=== PATIENT | male | born 1935 | race Caucasian/White ===

== ENCOUNTER → 2016-12-09 | Outpatient (REF) | payer MEDICARE, OTHER ==
[2016-12-09 12:34] LABS: MEAN CORPUSCULAR HEMOGLOBIN 33.1 pg (27.0-33.0); MEAN CORPUSCULAR HGB CONC 34.9 g/dl (32.0-36.5); MEAN CORPUSCULAR VOLUME 94.7 fl (80.0-96.0); RED CELL DISTRIBUTION WIDTH 12.9 % (11.5-14.5); WHITE BLOOD COUNT 4.5 K/mm3 (4.0-10.0)
[2016-12-09 12:45] LABS: ALBUMIN 3.8 GM/DL (3.2-5.2); ALBUMIN/GLOBULIN RATIO 1.19 (1.00-1.93); ALKALINE PHOSPHATASE 49 U/L (45-117); ALT/SGPT 33 U/L (12-78); ANION GAP 8 MEQ/L (8-16); AST/SGOT 28 U/L (15-37); BILIRUBIN,TOTAL 0.5 MG/DL (0.2-1.0); BLOOD UREA NITROGEN 12 MG/DL (7-18); CALCIUM LEVEL 8.9 MG/DL (8.8-10.2); CARBON DIOXIDE LEVEL 30 MEQ/L (21-32); CHLORIDE LEVEL 104 MEQ/L (98-107); CHOLESTEROL LEVEL 150 MG/DL (<200); CREATININE FOR GFR 0.94 MG/DL (0.70-1.30); GLOMERULAR FILTRATION RATE > 60.0 (>42); GLUCOSE, FASTING 105 MG/DL (83-110); POTASSIUM SERUM 3.8 MEQ/L (3.5-5.1); SODIUM LEVEL 142 MEQ/L (136-145); TRIGLYCERIDES LEVEL 181 MG/DL (<150)
== END ==
LOC: M LABDRAWC 11:56
PROVIDERS: ATTEND Physician Assistant
DX: I25.10 Atherosclerotic heart disease of native coronary artery without angina pectoris (principal); E78.00 Pure hypercholesterolemia, unspecified; I10 Essential (primary) hypertension

== ENCOUNTER → 2017-01-31 | Outpatient (CLI) | payer MEDICARE, OTHER ==
--- NOTE | 2017-01-31 11:00 | REP ---
PA and lateral chest: Comparison is 02/07/2016. There is no pneumothorax, hemothorax or pulmonary contusion. No rib fractures are identified on these PA and lateral views, however, the patient reportedly had two left rib fractures on a rib series performed at an outside institution approximately 3 weeks ago. There is no pleural thickening. Cardiac size is normal. The janis, mediastinum, and bony thorax are unremarkable . Impression: Essentially negative PA and lateral chest. No change from the comparison study. 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 Signed by El Tran MD 01/31/2017 10:51 A
== END ==
LOC: M CLY 10:14
PROVIDERS: ATTEND Family Medicine
DX: S22.42XA Multiple fractures of ribs, left side, initial encounter for closed fracture (principal); X58.XXXA Exposure to other specified factors, initial encounter; Y93.9 Activity, unspecified; Y92.9 Unspecified place or not applicable; Y99.8 Other external cause status

== ENCOUNTER → 2017-03-25 | Outpatient (CLI) | payer MEDICARE, OTHER ==
--- NOTE | 2017-03-25 17:06 | REP ---
RIGHT SHOULDER, ONE VIEW: HISTORY: Pain. There is no acute fracture or dislocation. There is narrowing of the joint spaces. Osteophytes are present on the lateral and inferior acromion. IMPRESSION: Degenerative change as described above.
== END ==
LOC: M CLY 15:14
PROVIDERS: ATTEND Family Medicine
DX: M19.011 Primary osteoarthritis, right shoulder (principal)
CPT/HCPCS: 73020; G0463

== ENCOUNTER → 2017-04-17 | Outpatient (CLI) | payer MEDICARE, OTHER ==
--- NOTE | 2017-04-17 11:13 | REP ---
CERVICAL SPINE SERIES: Seven views. HISTORY: Neck pain. FINDINGS: Lateral views done in flexion, extension and neutral position show preserved vertebral body heights and normal alignment. No subluxation or instability is seen. There is diffuse degenerative disc disease at each level. Disc space narrowing and spurring most pronounced at the C4-5 and C6-7. Prevertebral soft tissues are not widened. Open-mouth odontoid view is unremarkable. AP view shows heavy vascular calcification along the carotid bifurcations bilaterally. There is mild facet hypertrophy. Bilateral oblique radiographs demonstrate intact neural foramina bilaterally at each cervical level and normally aligned facets. IMPRESSION: Diffuse degenerative spondylosis and degenerative disc disease. No subluxation or instability. No significant bony neural foraminal narrowing seen.
== END ==
LOC: M CLY 10:13
PROVIDERS: ATTEND Family Medicine
DX: M47.812 Spondylosis without myelopathy or radiculopathy, cervical region (principal); M50.30 Other cervical disc degeneration, unspecified cervical region
CPT/HCPCS: 72052; G0463

== ENCOUNTER → 2017-04-29 | Outpatient (REF) | payer MEDICARE, OTHER ==
[2017-04-29 13:01] LABS: ALBUMIN 3.9 GM/DL (3.2-5.2); ALBUMIN/GLOBULIN RATIO 1.15 (1.00-1.93); ALKALINE PHOSPHATASE 61 U/L (45-117); ALT/SGPT 36 U/L (12-78); ANION GAP 8 MEQ/L (8-16); AST/SGOT 23 U/L (15-37); BILIRUBIN,TOTAL 0.4 MG/DL (0.2-1.0); BLOOD UREA NITROGEN 15 MG/DL (7-18); CARBON DIOXIDE LEVEL 30 MEQ/L (21-32); CHLORIDE LEVEL 104 MEQ/L (98-107); CHOLESTEROL LEVEL 158 MG/DL (<200); CREATININE FOR GFR 0.89 MG/DL (0.70-1.30); GLOMERULAR FILTRATION RATE > 60.0 (>35); GLUCOSE, FASTING 100 MG/DL (83-110); SODIUM LEVEL 142 MEQ/L (136-145); TOTAL PROTEIN 7.3 GM/DL (6.4-8.2); TRIGLYCERIDES LEVEL 184 MG/DL (<150)
== END ==
LOC: M LAB REF 08:27
PROVIDERS: ATTEND Physician Assistant
DX: I25.10 Atherosclerotic heart disease of native coronary artery without angina pectoris (principal); I10 Essential (primary) hypertension; E78.00 Pure hypercholesterolemia, unspecified

== ENCOUNTER → 2017-05-17 | Outpatient (CLI) | payer MEDICARE, OTHER ==
--- NOTE | 2017-05-17 19:00 | REP ---
Right shoulder MRI: The studies performed with T1, T2 and gradient echo data sets in sagittal, axial and coronal projections. Comparison is the plain film study dated 03/25/2017. There is marrow edema at the acromioclavicular joint and the distal clavicle and proximal acromion, possibly bone contusions. No fracture is identified. There is a small volume of fluid in the subacromial bursa compatible with bursitis. There is a full-thickness tear of the distal supraspinatus tendon with the distal tendon retracted approximately 18 mm. The supraspinatus tendon is irregular and contains multiple intermediate and T2 signal foci and is diffusely thinned. These findings are compatible with advanced tendinosis. There is cephalic migration of the humeral head and the glenoid. There is mild tendinosis of the infraspinatus tendon. This teres minor tendon is unremarkable. There is tendinosis of the subscapularis tendon. I suspect there is a full-thickness tear of the subscapularis tendon near the musculotendinous junction with 2 mm of retraction. There is also advanced tendinosis throughout the subscapularis tendon. There are small subcortical degenerative cysts in the humeral head. No labral tears identified, however, MRI arthrogram would be more sensitive. 5. Do not identify the biceps long head tendon within the bicipital groove. I suspect it is toward and retracted to the inferior margin of the bicipital groove. Impression: Severe tendinosis and thinning of the supraspinatus and subscapularis tendons. Full-thickness tear of the distal supraspinatus tendon with 18 mm of retraction. Full-thickness tear of the subscapularis tendon with 2 mm of retraction. Mild tendinosis of the infraspinatus tendon. Cephalic migration of the humeral head in the glenoid. I suspect the biceps long head tendon is torn and retracted to the inferior margin of the bicipital groove. Bone contusions in the distal clavicle and proximal acromion. Degenerative cysts in the humeral head. Mild glenohumeral osteoarthritis. Signed by El Tran MD 05/17/2017 06:52 P
== END ==
LOC: M RAD 10:05
PROVIDERS: ATTEND Family Medicine
DX: M25.511 Pain in right shoulder (principal)

== ENCOUNTER → 2017-12-08 | Outpatient (REF) | payer MEDICARE, OTHER ==
[2017-12-08 16:38] LABS: TOTAL 25(OH) VITAMIN D 47.4 NG/ML (30.0-100.0)
[2017-12-08 16:39] LABS: ANION GAP 8 MEQ/L (8-16); BLOOD UREA NITROGEN 19 MG/DL (7-18); CALCIUM LEVEL 9.1 MG/DL (8.8-10.2); CARBON DIOXIDE LEVEL 28 MEQ/L (21-32); CHLORIDE LEVEL 103 MEQ/L (98-107); CREATININE FOR GFR 0.98 MG/DL (0.70-1.30); GLOMERULAR FILTRATION RATE > 60.0 (>35); GLUCOSE, FASTING 94 MG/DL (70-100); MAGNESIUM LEVEL 2.5 MG/DL (1.8-2.4); POTASSIUM SERUM 4.4 MEQ/L (3.5-5.1); SODIUM LEVEL 139 MEQ/L (136-145)
== END ==
LOC: M SFHCCLAY 10:03
DX: R25.2 Cramp and spasm (principal); I10 Essential (primary) hypertension; Z79.82 Long term (current) use of aspirin; Z79.899 Other long term (current) drug therapy
CPT/HCPCS: 83735

== ENCOUNTER 2018-01-19 08:10 | Day surgery (SDC) | payer MEDICARE, OTHER ==
[2018-01-19] MEDS: NS 1,000 ML IV (08:30)
[2018-01-19] MEDS ORDERED: PROPOFOL 200 MG/20 ML VIAL As Ordered (10:12)
[2018-01-19] MEDS ORDERED: LIDOCAINE 2% INJ 100 MG/5 ML SDV (FOR ANES.) As Ordered (10:12)
== END 2018-01-19 10:40 | disposition home or self-care (01) ==
LOC: M OPP 08:10
DX: Z12.11 Encounter for screening for malignant neoplasm of colon (principal); Z86.010 Personal history of colon polyps; D12.6 Benign neoplasm of colon, unspecified; D17.5 Benign lipomatous neoplasm of intra-abdominal organs; K63.89 Other specified diseases of intestine; K64.0 First degree hemorrhoids; K57.30 Diverticulosis of large intestine without perforation or abscess without bleeding; R12 Heartburn; K22.8 Other specified diseases of esophagus; K44.9 Diaphragmatic hernia without obstruction or gangrene; I10 Essential (primary) hypertension; E78.5 Hyperlipidemia, unspecified; K21.9 Gastro-esophageal reflux disease without esophagitis; M19.90 Unspecified osteoarthritis, unspecified site; H25.9 Unspecified age-related cataract; Z88.1 Allergy status to other antibiotic agents; Z79.82 Long term (current) use of aspirin; Z79.899 Other long term (current) drug therapy; Z80.0 Family history of malignant neoplasm of digestive organs; Z87.891 Personal history of nicotine dependence
CPT/HCPCS: 45385

== ENCOUNTER → 2018-03-23 | Outpatient (CLI) | payer MEDICARE, OTHER | LOC: M RAD 09:48 | DX: I65.23 Occlusion and stenosis of bilateral carotid arteries (principal) | CPT/HCPCS: 93880 ==

== ENCOUNTER → 2018-04-07 | Outpatient (CLI) | payer MEDICARE, OTHER | LOC: M RAD 08:10 | DX: K76.0 Fatty (change of) liver, not elsewhere classified (principal); N28.1 Cyst of kidney, acquired | CPT/HCPCS: 76705 ==

== ENCOUNTER → 2018-05-19 | Outpatient (REF) | payer MEDICARE, OTHER ==
[2018-05-19 18:16] LABS: ALBUMIN/GLOBULIN RATIO 1.18 (1.00-1.93); ALKALINE PHOSPHATASE 57 U/L (45-117); ALT/SGPT 38 U/L (12-78); ANION GAP 7 MEQ/L (8-16); AST/SGOT 32 U/L (7-37); BILIRUBIN,TOTAL 0.3 MG/DL (0.2-1.0); BLOOD UREA NITROGEN 14 MG/DL (7-18); CALCIUM LEVEL 9.4 MG/DL (8.8-10.2); CARBON DIOXIDE LEVEL 32 MEQ/L (21-32); CHLORIDE LEVEL 103 MEQ/L (98-107); CHOLESTEROL LEVEL 164 MG/DL (<200); GLOMERULAR FILTRATION RATE > 60.0 (>35); GLUCOSE, FASTING 77 MG/DL (70-100); HDL CHOLESTEROL 41 MG/DL (>40); LDL CHOLESTEROL 87 MG/DL (<100); NON-HDL-C 123 MG/DL; POTASSIUM SERUM 4.1 MEQ/L (3.5-5.1); SODIUM LEVEL 142 MEQ/L (136-145); TOTAL PROTEIN 7.4 GM/DL (6.4-8.2); TRIGLYCERIDES LEVEL 182 MG/DL (<150)
[2018-05-19 18:40] LABS: HEMATOCRIT 42.1 % (42.0-52.0); HEMOGLOBIN 13.8 g/dl (13.5-17.5); MEAN CORPUSCULAR HEMOGLOBIN 30.5 pg (27.0-33.0); MEAN CORPUSCULAR HGB CONC 32.8 g/dl (32.0-36.5); MEAN CORPUSCULAR VOLUME 92.9 fl (80.0-96.0); PLATELET COUNT, AUTOMATED 310 10^3/uL (150-450); RED BLOOD COUNT 4.53 10^6/uL (4.30-6.10); RED CELL DISTRIBUTION WIDTH 12.2 % (11.5-14.5); WHITE BLOOD COUNT 5.5 10^3/uL (4.0-10.0)
== END ==
LOC: M LABDRAWC 16:16
DX: Z01.810 Encounter for preprocedural cardiovascular examination (principal); I25.10 Atherosclerotic heart disease of native coronary artery without angina pectoris; I10 Essential (primary) hypertension; E78.00 Pure hypercholesterolemia, unspecified
CPT/HCPCS: 80053

== ENCOUNTER → 2019-05-17 | Outpatient (CLI) | payer MEDICARE, OTHER ==
[~2019-05-17] MED LIST: AMLO10TA5 PO; ASPI1CHW2 PO; ATOR1TAB21 PO; ESCI20TA PO; HYDR12CA PO; PANT40TA3 PO; RAMI1CAP26 PO
--- NOTE | 2019-05-17 19:22 | REP ---
CHEST, TWO VIEWS: Two views of the chest are performed and compared to prior study of 01/31/2017. There is very mild fibro atelectatic change in each lung base. No acute infiltrate is seen. The heart is normal in size. There is mild calcification of the thoracic aorta. Mediastinal silhouette is unchanged. There are degenerative changes of the spine. IMPRESSION: Stable chronic findings. No acute infiltrate. Electronically Signed by El Ba MD 05/18/2019 04:47 P
== END ==
LOC: M CLY 15:06
PROVIDERS: ATTEND Nurse Practitioner Family
DX: R91.8 Other nonspecific abnormal finding of lung field (principal); R79.81 Abnormal blood-gas level
CPT/HCPCS: 71046; 87880; G0463

== ENCOUNTER → 2019-05-26 | Outpatient (REF) | payer MEDICARE, OTHER ==
[2019-05-26 11:44] LABS: HEMATOCRIT 43.4 % (42.0-52.0); HEMOGLOBIN 14.2 g/dl (13.5-17.5); MEAN CORPUSCULAR HEMOGLOBIN 30.9 pg (27.0-33.0); MEAN CORPUSCULAR HGB CONC 32.7 g/dl (32.0-36.5); MEAN CORPUSCULAR VOLUME 94.6 fl (80.0-96.0); PLATELET COUNT, AUTOMATED 299 10^3/uL (150-450); RED BLOOD COUNT 4.59 10^6/uL (4.30-6.10); WHITE BLOOD COUNT 5.9 10^3/uL (4.0-10.0)
[2019-05-26 12:06] LABS: ALBUMIN 3.7 GM/DL (3.2-5.2); ALT/SGPT 24 U/L (12-78); BILIRUBIN,TOTAL 0.3 MG/DL (0.2-1.0); BLOOD UREA NITROGEN 21 MG/DL (7-18); CALCIUM LEVEL 8.8 MG/DL (8.8-10.2); CARBON DIOXIDE LEVEL 30 MEQ/L (21-32); CHLORIDE LEVEL 105 MEQ/L (98-107); CHOLESTEROL LEVEL 148 MG/DL (<200); CHOLESTEROL RISK RATIO 2.901 (<5); CREATININE FOR GFR 1.11 MG/DL (0.70-1.30); GLOMERULAR FILTRATION RATE > 60.0 (>35); GLUCOSE, FASTING 87 MG/DL (70-100); HDL CHOLESTEROL 51 MG/DL (>40); LDL CHOLESTEROL 74 MG/DL (<100); NON-HDL-C 97 MG/DL; POTASSIUM SERUM 4.1 MEQ/L (3.5-5.1); SODIUM LEVEL 141 MEQ/L (136-145); TOTAL PROTEIN 7.1 GM/DL (6.4-8.2); TRIGLYCERIDES LEVEL 116 MG/DL (<150)
== END ==
LOC: M LABDRAWC 11:19
PROVIDERS: ATTEND Physician Assistant
DX: Z01.810 Encounter for preprocedural cardiovascular examination (principal); I25.10 Atherosclerotic heart disease of native coronary artery without angina pectoris; E78.00 Pure hypercholesterolemia, unspecified; I10 Essential (primary) hypertension

== ENCOUNTER → 2019-12-13 | Outpatient (REF) | payer MEDICARE, OTHER ==
[2019-12-13 16:42] LABS: BLOOD UREA NITROGEN 13 MG/DL (7-18); CALCIUM LEVEL 8.9 MG/DL (8.8-10.2); CARBON DIOXIDE LEVEL 30 MEQ/L (21-32); CHLORIDE LEVEL 105 MEQ/L (98-107); CREATININE FOR GFR 0.95 MG/DL (0.70-1.30); GLOMERULAR FILTRATION RATE > 60.0 (>35); GLUCOSE, FASTING 110 MG/DL (70-100); POTASSIUM SERUM 4.3 MEQ/L (3.5-5.1); SODIUM LEVEL 141 MEQ/L (136-145)
== END ==
LOC: M LABDRAWC 15:47
PROVIDERS: ATTEND Physician Assistant
DX: I25.10 Atherosclerotic heart disease of native coronary artery without angina pectoris (principal); I10 Essential (primary) hypertension

== ENCOUNTER → 2020-01-07 | Outpatient (REF) | payer MEDICARE, OTHER ==
[2020-01-07 12:20] LABS: HEMATOCRIT 41.5 % (42.0-52.0); HEMOGLOBIN 13.4 g/dl (13.5-17.5); MEAN CORPUSCULAR HEMOGLOBIN 30.5 pg (27.0-33.0); MEAN CORPUSCULAR HGB CONC 32.3 g/dl (32.0-36.5); MEAN CORPUSCULAR VOLUME 94.3 fl (80.0-96.0); PLATELET COUNT, AUTOMATED 291 10^3/uL (150-450); WHITE BLOOD COUNT 5.3 10^3/uL (4.0-10.0)
[2020-01-07 12:22] LABS: APPEARANCE, URINE CLEAR (CLEAR); BACTERIA, URINE AUTO NEGATIVE (NEGATIVE); BILIRUBIN, URINE AUTO NEGATIVE (NEGATIVE); BLOOD, URINE BLOOD NEGATIVE (NEGATIVE); COLOR, URINE YELLOW (YELLOW); GLUCOSE, URINE (UA) AUTO NEGATIVE (NEGATIVE); KETONE, URINE AUTO NEGATIVE (NEGATIVE); LEUKOCYTE ESTERASE, URINE AUTO NEGATIVE (NEGATIVE); MUCUS, URINE SMALL (NEGATIVE); NITRITE, URINE AUTO NEGATIVE (NEGATIVE); PROTEIN, URINE AUTO NEGATIVE (NEGATIVE); RBC, URINE AUTO 0 /HPF (0-3); SPECIFIC GRAVITY URINE AUTO 1.015 (1.002-1.035); SQUAMOUS EPITHELIAL CELL UR AU 0 /HPF (0-6); UROBILINOGEN, URINE AUTO 0.2 mg/dL (0.0-2.0); WBC, URINE AUTO 0 /HPF (0-3)
[2020-01-07 12:28] LABS: INR 0.96; PROTHROMBIN TIME 12.5 SECONDS (11.8-14.0)
[2020-01-07 12:43] LABS: BLOOD UREA NITROGEN 13 MG/DL (7-18); CALCIUM LEVEL 9.4 MG/DL (8.8-10.2); CARBON DIOXIDE LEVEL 28 MEQ/L (21-32); CHLORIDE LEVEL 105 MEQ/L (98-107); CREATININE FOR GFR 0.84 MG/DL (0.70-1.30); GLOMERULAR FILTRATION RATE > 60.0 (>35); GLUCOSE, FASTING 89 MG/DL (70-100); SODIUM LEVEL 140 MEQ/L (136-145)
== END ==
LOC: M LABDRAWC 11:44
PROVIDERS: ATTEND Orthopaedic Surgery
DX: Z01.818 Encounter for other preprocedural examination (principal); M48.00 Spinal stenosis, site unspecified

== ENCOUNTER → 2020-01-07 | Outpatient (CLI) | payer MEDICARE, OTHER ==
--- NOTE | 2020-01-07 10:24 | REP ---
CHEST, TWO VIEWS: COMPARISON: 05/17/2019 There is no evidence of acute infiltrate. No pleural effusion is seen. The heart is normal in size. The mediastinal silhouette is unremarkable. The visualized osseous structures are intact. There is mild calcification of the thoracic aorta. There are mild degenerative changes of the spine. IMPRESSION: No acute pulmonary disease. Electronically Signed by El Ba MD 01/07/2020 11:08 A
== END ==
LOC: M CLY 08:37
PROVIDERS: ATTEND Orthopaedic Surgery
DX: Z01.818 Encounter for other preprocedural examination (principal); M48.00 Spinal stenosis, site unspecified; Z79.899 Other long term (current) drug therapy

== ENCOUNTER 2020-02-18 19:15 | Inpatient (IN) | payer MEDICARE, OTHER ==
[~2020-02-18] VITALS: Ht 167.6 cm; Wt 94.5 kg
[~2020-02-18 19:15] MED LIST changes: -AMLO10TA5 PO; +AMLO1TAB25 PO; +PANT40TA29 PO; -PANT40TA3 PO
[2020-02-18] MEDS ORDERED: ACETAMINOPHEN 500 MG TAB PO ONE (19:45)
[2020-02-18] MEDS ORDERED: BACT400T PO (20:00)
[2020-02-18] MEDS ORDERED: SERT50TA29 PO (20:00)
[2020-02-18] MEDS ORDERED: FLOM0.4C39 PO (20:00)
[2020-02-18 20:11] LABS: BASO % 0.2 % (0.0-1.0); EOS % 0.4 % (0.0-3.0); HEMATOCRIT 31.5 % (42.0-52.0); HEMOGLOBIN 10.3 g/dl (13.5-17.5); LYMPH # 0.2 10^3/uL (1.5-5.0); LYMPH % 2.6 % (24.0-44.0); MEAN CORPUSCULAR HEMOGLOBIN 30.2 pg (27.0-33.0); MEAN CORPUSCULAR HGB CONC 32.7 g/dl (32.0-36.5); MEAN CORPUSCULAR VOLUME 92.4 fl (80.0-96.0); MONO # 0.2 10^3/uL (0.0-0.8); MONO % 1.8 % (0.0-5.0); NEUTROPHILS # 8.6 10^3/uL (1.5-8.5); NEUTROPHILS % 94.6 % (36.0-66.0); PLATELET COUNT, AUTOMATED 369 10^3/uL (150-450); RED BLOOD COUNT 3.41 10^6/uL (4.30-6.10); WHITE BLOOD COUNT 9.1 10^3/uL (4.0-10.0)
[2020-02-18 20:32] LABS: BLOOD UREA NITROGEN 11 MG/DL (7-18); CALCIUM LEVEL 8.2 MG/DL (8.8-10.2); CARBON DIOXIDE LEVEL 23 MEQ/L (21-32); CHLORIDE LEVEL 101 MEQ/L (98-107); CREATININE FOR GFR 0.78 MG/DL (0.70-1.30); GLOMERULAR FILTRATION RATE > 60.0 (>35); GLUCOSE, FASTING 111 MG/DL (70-100); POTASSIUM SERUM 3.6 MEQ/L (3.5-5.1); SODIUM LEVEL 132 MEQ/L (136-145)
[2020-02-18 20:48] LABS: BILIRUBIN,DIRECT 0.2 MG/DL (0.0-0.2); BILIRUBIN,TOTAL 0.8 MG/DL (0.2-1.0); C REACTIVE PROTEIN QUANTITATIV 4.8 MG/DL (0.00-0.30); TOTAL PROTEIN 6.3 GM/DL (6.4-8.2)
[2020-02-18 20:50] LABS: CK-MB VALUE MASS < 1.0 NG/ML (<3.6); CPK CREATINE PHOSPHOKINASE 84 U/L (39-308); MB/CK RELATIVE INDEX 1.19 (< OR =4); TROPONIN I < 0.02 NG/ML (< 0.10)
[2020-02-18] MEDS ORDERED: ATORVASTATIN 10 MG TAB PO SCH (21:00)
[2020-02-18] MEDS ORDERED: ASPIRIN 81 MG ENTERIC TAB PO SCH (21:00)
[2020-02-18] MEDS ORDERED: NS 1,000 ML IV ONE (21:45)
--- NOTE | 2020-02-18 22:07 | REPVR ---
PROCEDURE INFORMATION: Exam: CT Lumbar Spine Without Contrast Exam date and time: 02/18/2020 9:46 PM Age: 84 years old Clinical indication: Low back pain; Prior surgery; Additional info: Eval post pain/abscess TECHNIQUE: Imaging protocol: Computed tomography images of the lumbar spine without contrast. Radiation optimization: All CT scans at this facility use at least one of these dose optimization techniques: automated exposure control; mA and/or kV adjustment per patient size (includes targeted exams where dose is matched to clinical indication); or iterative reconstruction. COMPARISON: No relevant prior studies available. FINDINGS: Vertebrae: Status post posterior interbody fusion of L1-S1 using transpedicular screws metallic side plates. Status post bilateral laminectomies at L1 through L5. Levoscoliosis. Discs/Spinal canal/Neural foramina: No significant disc protrusion. No severe spinal canal stenosis. No significant neural foraminal narrowing. Epidural space: Extensive postoperative soft tissue inflammatory changes demonstrated in the posterior paraspinal soft tissues from L1-S1 extending anteriorly into the posterior epidural space. Finding consistent with postoperative changes including fibrosis and or inflammatory changes depending on procedure date, although infection not excluded. Other bones/joints: Osteoporosis. Reproductive: Moderate prostatomegaly. Contracted urinary bladder demonstrates the presence of a Bob catheter and intraluminal air likely postprocedural. Mild diverticular disease in the sigmoid colon. Right renal cyst measures 2.8 cm without complex features. Soft tissue mass in the anterior aspect of the left kidney measures 5.8 cm not definitely cystic. Further evaluation suggested. Soft tissues: Large fluid collection demonstrated in the posterior paraspinal soft tissues extending from T12-S1 measuring 18.7 cm craniocaudad by 3.7 x 10.4 cm in transverse dimension. Finding may represent postoperative seroma/hematoma although infection is not excluded. IMPRESSION: 1. Status post posterior interbody fusion of L1-S1 using transpedicular screws metallic side plates. Status post bilateral laminectomies at L1 through L5. 2. Large fluid collection demonstrated in the posterior paraspinal soft tissues extending from T12-S1 measuring 18.7 cm craniocaudad by 3.7 x 10.4 cm in transverse dimension. Finding may represent postoperative seroma/hematoma although infection is not excluded. 3. Extensive postoperative soft tissue inflammatory changes demonstrated in the posterior paraspinal soft tissues from L1-S1 extending anteriorly into the posterior epidural space. Finding consistent with postoperative changes including fibrosis and or inflammatory changes depending on procedure date, although infection not excluded. 4. Left renal cyst and possible left renal mass as described above. Further evaluation with ultrasound suggested. Electronically signed by: Enzo Lozoya On 02/18/2020 22:07:21 PM
[2020-02-18] MEDS ORDERED: ATOR1TAB19 PO (22:24)
[2020-02-18] MEDS ORDERED: ECOT81TA5 PO (22:24)
[2020-02-18] MEDS ORDERED: QC F0.52 PO (22:24)
--- NOTE | 2020-02-18 22:58 | HPEPDOC ---
[facility] Medical History & Physical Date of Admission Feb 19, 2020 Date of Service: Feb 19, 2020 Primary Care Physician: Zay Correia MD Attending Physician: BRYAN DAVE MD History and Physical TIME OF SERVICE: 11:35 PM CHIEF COMPLAINT: Fever HISTORY OF PRESENT ILLNESS: The majority of the history was obtained from the ER staff and ER notes, the patient reports that he doesn't know why he came to the hospital and doesn't remember how he got here. This 84-year-old gentleman called EMS because he was having a fever associated with nausea and vomiting. Apparently he presented to [facility] several times over the last 3 days and was prescribed antibiotics for UTI. When EMS checked his vitals. His fever was as high as 102.8. The patient denied taking any medications for the fever. On my assessment, the patient reported feeling fine, denied having any acute complaints or pain, and reported being unaware of the reason why he came to the hospital. According to Dr. Boykin the patient complained of back pain, therefore, he ordered a CT of the lumbar spine. REVIEW OF SYSTEMS: 12 point review of systems negative except as listed in HPI PAST MEDICAL/ SURGICAL HISTORY: Hypertension Dyslipidemia Chronic lower back pain status post Bilateral laminectomies at L1 through L5 BPH Chronic indwelling urinary catheter OA Anxiety Bilateral knee surgery SOCIAL HISTORY: Former smoker He doesn't drink alcohol He lives with his FAMILY HISTORY: Lung cancer Prostate cancer ALLERGIES: Please see below. HOME MEDICATIONS: Please see below. PHYSICAL EXAMINATION: Vital Signs Date Time Temp Pulse Resp B/P (MAP) Pulse Ox O2 Delivery O2 Flow Rate FiO2 02/18/20 19:21 20 117/58 (77) Room Air 02/18/20 19:22 101.7 93 90 GEN: well-nourished / well developed/ NAD INTEGUMENT: not flushed/ not jaundice HEENT: NCAT CVS: RRR/NMRG/ radial pulses intact LUNGS: able to speak full sentences without stopping to take a breath / lungs are clear to auscultation bilaterally on room air ABDOMEN: Contour (obese) MSK/EXTREMITIES: range of motion intact in all 4 extremities / the skin surrounding the incision site at the back is well healed, there is no discharge, but there is 7 inch long 1 inch wide bludging area parallel to the spine NEURO: CN 2-12 are grossly intact / speech is not dysarthric / strength is 5/5 except at right lower extremity 4/PSYCH: alert and oriented to person place and time/ able to understand and follow all commands LABORATORY DATA: 02/18/20 19:32 Immature Granulocyte % (Auto) 0.4, Neutrophils (%) (Auto) 94.6H, Lymphocytes (%) (Auto) 2.6L, Monocytes (%) (Auto) 1.8, Eosinophils (%) (Auto) 0.4, Basophils (%) (Auto) 0.2, Neutrophils # (Auto) 8.6H, Lymphocytes # (Auto) 0.2L, Monocytes # (Auto) 0.2, Eosinophils # (Auto) 0.0, Basophils # (Auto) 0.0, Nucleated Red Blood Cells % (auto) 0.0, D-Dimer, Quantitative > 4000H, Anion Gap 8, Glomerular Filtration Rate > 60.0, Lactic Acid Level 2.5*H, Calcium Level 8.2L, Total Bilirubin 0.8, Direct Bilirubin 0.2, Aspartate Amino Transf (AST/SGOT) 17, Alanine Aminotransferase (ALT/SGPT) 16, Alkaline Phosphatase 110, Lactate Dehydrogenase 183, Total Creatine Kinase 84, Creatine Kinase MB < 1.0, Creatine Kinase MB Relative Index 1.19, Troponin I < 0.02, C-Reactive Protein, Quantitative 4.80H, Total Protein 6.3L, Albumin 3.0L, Albumin/Globulin Ratio 0.9 02/18/20 19:57: 02/18/20 20:05: POC pH (Misc Panel) 7.407, POC Base Excess (Misc Panel) -2.0, POC Saturated Percent O2 (Misc) 94L, POC pO2 (Misc Panel) 69.0L, POC pCO2 (Misc Panel) 36.8, POC HCO3 (Misc Panel) 23.2, POC Total CO2 (Misc Panel) 24.0 IMAGING: CT of the lumbar spine "IMPRESSION: 1. Status post posterior interbody fusion of L1-S1 using transpedicular screws metallic side plates. Status post bilateral laminectomies at L1 through L5. 2. Large fluid collection demonstrated in the posterior paraspinal soft tissues extending from T12-S1 measuring 18.7 cm raniocaudad by 3.7 x 10.4 cm in transverse dimension. Finding may represent postoperative seroma/hematoma although infection is not excluded. 3. Extensive postoperative soft tissue inflammatory changes demonstrated in the posterior paraspinal soft tissues from L1-S1 extending anteriorly into the posterior epidural space. Finding consistent with postoperative changes including fibrosis and or inflammatory changes depending on procedure date, although infection not excluded. 4. Left renal cyst and possible left renal mass as described above. Further evaluation with ultrasound suggested. " CTA chest "IMPRESSION: 1. No pulmonary artery emboli. 2. No acute findings. " The chest x-ray shows cardiomegaly and prominent pulmonary vasculature, but the final read is pending MICROBIOLOGY: 02/18/20 Respiratory Virus Panel (PCR) (RUBIA) - Final, Complete 02/18/20 Blood Culture, Received Pending ASSESSMENT: Mr. Yo is an 84-year-old with a history of chronic back pain and recent bilateral L1-L5 laminectomies, chronic hypertension, dyslipidemia, BPH, OA, and anxiety who presented for evaluation of fever, possibly due to UTI and or ramu marizol soft tissue fluid collection. PLAN: 1. Fever He doesn't have other SIRS criteria but has lactic acidosis Plan: Admit to medical floor / telemetry / Zosyn / f/u Ucx and blood Cx / trend lactic acid / acetaminophen PRN for fever 2. Posterior paraspinal soft tissue fluid collection Possibly due to seroma vs hematoma vs infection The patient can't remember when his surgery was done. Plan: per d/w will contact transfer center at [facility] to see if he can be transferred there to be evaluated by his Primary Back surgeon / c/w Roger 3. Possible UTI The patient has a rodriguez, but didn't c/o of abdominal pain at the time of my exam UA + for leukocyte esterase and WBCs Plan: Zosyn pending final Ucx results 4. Left 5.8 cm renal mass Plan: can f/u w PCP to complete work up for renal cancer on an out pt basis 5. NN Anemia Suspect this may be related to renal cancer ??? Hg dropped from 13.4 down to 10.3 Plan: trend Hg/ f/u iron panel 6. Mild Hyponatremia Plan: f/u Uosmol, serum osmol and Ayala to determine subtype 7. Elevated D-dimer CTA chest negative Plan: no additional intervention 8. Chronic Hypertension Plan: amlodipine, HTCZ, ramipril 9. Dyslipidemia Plan: atorvastatin 10. BPH / Chronic indwelling urinary catheter Plan: rodriguez care, tamsulosin 11. Obesity BMI of 33.6 complicates care DVT PROPHYLAXIS: Lovenox DISPOSITION: possible transfer to [facility] LATE ENTRY Per d/w [facility] procedure was done on January 27 Home Medications Scheduled Amlodipine Besylate (Amlodipine Besylate) 10 Mg Tab, 10 MG PO DAILY Aspirin (Ecotrin) 81 Mg Tablet.dr, 81 MG PO QHS Atorvastatin Calcium (Atorvastatin Calcium) 10 Mg Tablet, 10 MG PO DAILY Hydrochlorothiazide (Hydrochlorothiazide) 12.5 Mg Cap, 12.5 MG PO DAILY Pantoprazole Sodium (Pantoprazole Sodium) 40 Mg Tab, 40 MG PO DAILY Psyllium Husk (Fiber) 0.52 Gm Capsule, 0.52 GM PO DAILY Ramipril (Ramipril) 10 Mg Cap, 10 MG PO DAILY Sertraline HCl (Sertraline HCl) 50 Mg Tablet, 50 MG PO DAILY Tamsulosin HCl (Flomax) 0.4 Mg Capsule, 0.8 MG PO DAILY Allergies Coded Allergies: Lobster (Verified Allergy, Unknown, 02/18/20) Shrimp (Verified Allergy, Unknown, 02/18/20) erythromycin base (Verified Allergy, Unknown, 02/18/20) A-FIB/CHADSVASC A-FIB History Current/History of A-Fib/PAF?: No Current PO Anticoag Therapy: No BRYAN DAVE MD Feb 18, 2020 22:58
[2020-02-18 22:59] LABS: APPEARANCE, URINE CLOUDY (CLEAR); BACTERIA, URINE AUTO 1+ (NEGATIVE); BILIRUBIN, URINE AUTO NEGATIVE (NEGATIVE); BLOOD, URINE BLOOD 3+ (NEGATIVE); COLOR, URINE AMBER (YELLOW); GLUCOSE, URINE (UA) AUTO NEGATIVE (NEGATIVE); KETONE, URINE AUTO TRACE mg/dL (NEGATIVE); LEUKOCYTE ESTERASE, URINE AUTO 3+ (NEGATIVE); MUCUS, URINE SMALL (NEGATIVE); NITRITE, URINE AUTO POSITIVE (NEGATIVE); PROTEIN, URINE AUTO 2+ mg/dL (NEGATIVE); RBC, URINE AUTO 111 /HPF (0-3); SPECIFIC GRAVITY URINE AUTO 1.023 (1.002-1.035); SQUAMOUS EPITHELIAL CELL UR AU 0 /HPF (0-6); TRANSITIONAL EPITHELIAL AUTO 2 /HPF; UROBILINOGEN, URINE AUTO 0.2 mg/dL (0.0-2.0); WBC, URINE AUTO TNTC /HPF (0-3)
[2020-02-18] MEDS ORDERED: MOM 30ML SUSPENSION UDC PO PRN (23:00)
[2020-02-18] MEDS ORDERED: ACETAMINOPHEN TAB 650MG DOSE (2X325MG) PO PRN (23:00)
[2020-02-18] MEDS ORDERED: MAALOX 30 ML SUSP *UDC PO PRN (23:00)
[2020-02-18] MEDS ORDERED: ISOVUE-370 76% 100ML VIAL As Ordered ONE (23:00)
[2020-02-18] MEDS ORDERED: NS 1,000 ML IV SCH (23:00)
--- NOTE | 2020-02-18 23:33 | REPVR ---
PROCEDURE INFORMATION: Exam: CT Angiography Chest With Contrast Exam date and time: 02/18/2020 10:54 PM Age: 84 years old Clinical indication: Fever; Additional info: Hypox TECHNIQUE: Imaging protocol: Computed tomographic angiography of the chest with intravenous contrast. 3D rendering: MIP and/or 3D reconstructed images were created by the technologist. Radiation optimization: All CT scans at this facility use at least one of these dose optimization techniques: automated exposure control; mA and/or kV adjustment per patient size (includes targeted exams where dose is matched to clinical indication); or iterative reconstruction. Contrast material: ISO; Contrast volume: 75 ml; Contrast route: INTRAVENOUS (IV); COMPARISON: CR Chest, 1 view 02/18/2020 8:08 PM FINDINGS: Pulmonary arteries: No evidence of pulmonary artery emboli. Aorta: No evidence of thoracic aortic aneurysm or dissection. Lungs: There is minor dependent atelectasis. No consolidation. No focal ground-glass opacities. . Pleural space: Unremarkable. No pneumothorax. No pleural effusion. Heart: There are coronary artery calcifications. Mediastinal space: Small hiatal hernia. Lymph nodes: Unremarkable. No enlarged lymph nodes. Kidneys and ureters: There is a 2.7 cm simple left renal cyst. Bones/joints: There are degenerative changes of the thoracic spine. No fracture. No focal osseous lesion. Soft tissues: Unremarkable. IMPRESSION: 1. No pulmonary artery emboli. 2. No acute findings. COMMENTS: Consistent with the [employer]'s Incidental Findings Committee white paper (J Am Chapis Radiol 2018): Any incidental renal lesion less than 1.0 cm or classified as too small to characterize, or any incidental cystic renal lesion characterized as simple-appearing, is likely benign. No follow-up imaging is recommended for these lesions per consensus recommendations based on imaging criteria. Electronically signed by: Balwinder Henley On 02/18/2020 23:33:24 PM
[2020-02-19 00:35] VITALS: BP 133/70
[2020-02-19] MEDS ORDERED: PIPERACILLIN/TAZOBACTAM SOD 3.375 GM in D5W MINI-BAG PLUS 50 ML IV SCH (03:00)
--- NOTE | 2020-02-19 05:01 | DS.PDOC ---
Discharge Summary General Date of Admission Feb 18, 2020 at 22:53 Date of Discharge 02/19/20 550am Primary Care Physician: Zay Correia MD Attending Physician: BRYAN DAVE MD Discharge Summary PROCEDURES PERFORMED DURING STAY: [None]. ADMITTING DIAGNOSES: 1. Fever 2. Posterior paraspinal soft tissue fluid collection possibly due to seroma vs hematoma vs infection 3. Possible UTI 4. Left 5.8 cm renal mass 5. NN Anemia 6. Mild Hyponatremia 7. Elevated D-dimer with negative CTA chest DISCHARGE DIAGNOSES: 1.Fever 2. Posterior paraspinal soft tissue fluid collection possibly due to seroma vs hematoma vs infection 3. Possible UTI 4. Left 5.8 cm renal mass 5. NN Anemia 6. Mild Hyponatremia 7. Elevated D-dimer with negative CTA chest COMPLICATIONS/CHIEF COMPLAINT: FEVER. HISTORY OF PRESENT ILLNESS: Per HPI "The majority of the history was obtained from the ER staff and ER notes, the patient reports that he doesn't know why he came to the hospital and doesn't remember how he got here. This 84-year-old gentleman called EMS because he was having a fever associated with nausea and vomiting. Apparently he presented to [facility] several times over the last 3 days and was prescribed antibiotics for UTI. When EMS checked his vitals. His fever was as h igh as 102.8. The patient denied taking any medications for the fever. On my assessment, the patient reported feeling fine, denied having any acute complaints or pain, and reported being unaware of the reason why he came to the hospital. According to Dr. Boykin the patient complained of back pain, therefore, he ordered a CT of the lumbar spine." HOSPITAL COURSE: He was admitted to the medical floor and started on zosyn; per discussion with Dr. Maza, orthopedic surgeon on-call here at [facility] I consulted the transfer center at [facility] to see if the patient could be transferred for ev aluation by his primary back surgeon. He was accepted under the hospitalist service under the care of Dr. Fuller. DISCHARGE MEDICATIONS: Please see below. ALLERGIES: Please see below. PHYSICAL EXAMINATION ON DISCHARGE: VITAL SIGNS: Please see below. GENERAL: NAD EXTREMITIES: DUTCH x 4 PSYCHIATRIC EXAMINATION: A&O able to understand and follow all comands LABORATORY DATA: Please see below. IMAGING: see H&P PROGNOSIS: fair ACTIVITY: [As tolerated]. DIET: low salt DISCHARGE PLAN: DISPOSITION: transfer to [facility] DISCHARGE INSTRUCTIONS: 1. The patient should follow up with his PCP to discuss if he wishes to have a work up for the renal cell mass and to work up the cause of his anemia. ITEMS TO FOLLOWUP ON ON OUTPATIENT: 1. Evaluation of posterior paraspinal soft tissue fluid collection at [facility] 2. Renal Mass 3. Anemia DISCHARGE CONDITION: [Stable]. TIME SPENT ON DISCHARGE: approximately 30 min Vital Signs/I&Os Vital Signs Date Time Temp Pulse Resp B/P (MAP) Pulse Ox O2 Delivery O2 Flow Rate FiO2 02/19/20 00:35 98.0 85 18 133/70 (91) 97 Room Air I&O- Last 24 Hours up to 6 AM 02/19/20 06:00 Intake Total 1050 ml Output Total 900 ml Balance 150 ml Laboratory Data Labs 24H Laboratory Tests 2 02/18/20 19:32: Immature Granulocyte % (Auto) 0.4, Neutrophils (%) (Auto) 94.6H, Lymphocytes (%) (Auto) 2.6L, Monocytes (%) (Auto) 1.8, Eosinophils (%) (Auto) 0.4, Basophils (%) (Auto) 0.2, Neutrophils # (Auto) 8.6H, Lymphocytes # (Auto) 0.2L, Monocytes # (Auto) 0.2, Eosinophils # (Auto) 0.0, Basophils # (Auto) 0.0, Nucleated Red Blood Cells % (auto) 0.0, D-Dimer, Quantitative > 4000H, Anion Gap 8, Glomerular Filtration Rate > 60.0, Lactic Acid Level 2.5*H, Calcium Level 8.2L, Total Bilirubin 0.8, Direct Bilirubin 0.2, Aspartate Amino Transf (AST/SGOT) 17, Alanine Aminotransferase (ALT/SGPT) 16, Alkaline Phosphatase 110, Lactate Dehydrogenase 183, Total Creatine Kinase 84, Creatine Kinase MB < 1.0, Creatine Kinase MB Relative Index 1.19, Troponin I < 0.02, C-Reactive Protein, Quantitative 4.80H, Total Protein 6.3L, Albumin 3.0L, Albumin/Globulin Ratio 0.9 02/18/20 19:57: Urine Color HORTENCIA, Urine Appearance CLOUDYH, Urine pH 5.0, Urine Specific [place] 1.023, Urine Protein 2+H, Urine Glucose (Auto)(UA) NEGATIVE, Urine Ketones (Auto) TRACEH, Urine Blood 3+H, Urine Nitrite POSITIVE, Urine Bilirubin NEGATIVE, Urine Urobilinogen 0.2, Urine Leukocyte Esterase (Auto) 3+H, Urine WBC (Auto) TNTCH, Urine RBC (Auto) 111H, Urine Hyaline Casts (Auto) 0, Urine Bacteria (Auto) 1+H, Urine Squamous Epithelial Cells 0, Urine Transitional Epithelial Cells 2, Urine Mucus (Auto) SMALL, Urine Yeast-Like Cells (Auto) SMALLH, Urine Sperm (Auto) 02/18/20 20:05: POC pH (Misc Panel) 7.407, POC Base Excess (Misc Panel) -2.0, POC Saturated Percent O2 (Misc) 94L, POC pO2 (Misc Panel) 69.0L, POC pCO2 (Misc Panel) 36.8, POC HCO3 (Misc Panel) 23.2, POC Total CO2 (Misc Panel) 24.0 02/18/20 23:27: Lactic Acid Level 1.2 CBC/BMP Laboratory Tests 02/18/20 19:32 Microbiology Microbiology 02/18/20 Respiratory Virus Panel (PCR) (RUBIA) - Final, Complete 02/18/20 Blood Culture, Received Pending Discharge Medications Scheduled Amlodipine Besylate (Amlodipine Besylate) 10 Mg Tab, 10 MG PO DAILY, (Reported) Aspirin (Ecotrin) 81 Mg Tablet.dr, 81 MG PO QHS, (Reported) Atorvastatin Calcium (Atorvastatin Calcium) 10 Mg Tablet, 10 MG PO DAILY, (Reported) Hydrochlorothiazide (Hydrochlorothiazide) 12.5 Mg Cap, 12.5 MG PO DAILY, (Reported) Pantoprazole Sodium (Pantoprazole Sodium) 40 Mg Tab, 40 MG PO DAILY, (Reported) Psyllium Husk (Fiber) 0.52 Gm Capsule, 0.52 GM PO DAILY, (Reported) Ramipril (Ramipril) 10 Mg Cap, 10 MG PO DAILY, (Reported) Sertraline HCl (Sertraline HCl) 50 Mg Tablet, 50 MG PO DAILY, (Reported) Tamsulosin HCl (Flomax) 0.4 Mg Capsule, 0.8 MG PO DAILY, (Reported) Allergies Coded Allergies: Lobster (Verified Allergy, Unknown, 02/18/20) Shrimp (Verified Allergy, Unknown, 02/18/20) erythromycin base (Verified Allergy, Unknown, 02/18/20) BRYAN DAVE MD Feb 19, 2020 05:01
[2020-02-19 05:51] LABS: HEMOGLOBIN 11.3 g/dl (13.5-17.5); MEAN CORPUSCULAR HEMOGLOBIN 30.1 pg (27.0-33.0); MEAN CORPUSCULAR HGB CONC 32.3 g/dl (32.0-36.5); MEAN CORPUSCULAR VOLUME 93.3 fl (80.0-96.0); PLATELET COUNT, AUTOMATED 348 10^3/uL (150-450); RED BLOOD COUNT 3.75 10^6/uL (4.30-6.10); WHITE BLOOD COUNT 12.6 10^3/uL (4.0-10.0)
[2020-02-19 06:00] VITALS: BP 129/74
[2020-02-19 06:13] LABS: BLOOD UREA NITROGEN 11 MG/DL (7-18); CALCIUM LEVEL 8.6 MG/DL (8.8-10.2); CARBON DIOXIDE LEVEL 27 MEQ/L (21-32); CHLORIDE LEVEL 102 MEQ/L (98-107); GLOMERULAR FILTRATION RATE > 60.0 (>35); GLUCOSE, FASTING 95 MG/DL (70-100); MAGNESIUM LEVEL 1.7 MG/DL (1.8-2.4); POTASSIUM SERUM 3.6 MEQ/L (3.5-5.1); SODIUM LEVEL 136 MEQ/L (136-145)
[2020-02-19 06:18] LABS: PERCENT SATURATION 3.3 % (19.7-50.0)
[2020-02-19 06:53] LABS: BASO % 0.2 % (0.0-1.0); EOS # 0.1 10^3/uL (0.0-0.5); LYMPH # 0.6 10^3/uL (1.5-5.0); LYMPH % 4.7 % (24.0-44.0); MONO # 0.4 10^3/uL (0.0-0.8); MONO % 3.3 % (0.0-5.0); NEUTROPHILS # 11.4 10^3/uL (1.5-8.5); NEUTROPHILS % 90.4 % (36.0-66.0)
--- NOTE | 2020-02-19 07:18 | REP ---
Clinical: Fever. Hypoxia . Comparison: 01/07/2020 . Findings: The mediastinum and cardiac silhouette are stable and mild cardiomegaly is again suggested. The lung mejia suggest right lower lobe atelectasis/early infiltrate. No definite effusion. No pneumothorax. Skeletal structures intact. Impression: 1. Right lower lobe opacities suggesting atelectasis/early infiltrate. Electronically Signed by Brian De Souza MD 02/19/2020 07:09 A
[2020-02-19 08:26] VITALS: BP 123/69
[2020-02-19] MEDS ORDERED: PANTOPRAZOLE 40MG TAB (PROTONIX) PO SCH (09:00)
[2020-02-19] MEDS ORDERED: ENOXAPARIN 40MG/0.4ML SYRINGE (J1650 PER 10MG) SC SCH (09:00)
[2020-02-19] MEDS ORDERED: ramipriL 5 MG CAP PO SCH (09:00)
[2020-02-19] MEDS ORDERED: SERTRALINE HCL 50 MG TAB PO SCH (09:00)
[2020-02-19] MEDS ORDERED: TAMSULOSIN 0.4 MG CAP PO SCH (09:00)
[2020-02-19] MEDS ORDERED: hydroCHLOROthiazide 12.5 MG CAPSULE PO SCH (09:00)
[2020-02-19] MEDS ORDERED: amLODIPine 10 MG TAB PO SCH (09:00)
== END 2020-02-19 09:01 | disposition short-term general hospital (02) | DRG 864 ==
LOC: M ED 19:15 → M ED INP 22:53 → ENRESERV 23:05 → M MSPAV 02-19 00:35
PROVIDERS: ADMIT Internal Medicine; ATTEND Internal Medicine
DX: R50.9 Fever, unspecified (principal); N39.0 Urinary tract infection, site not specified; E87.0 Hyperosmolality and hypernatremia; I10 Essential (primary) hypertension; E78.5 Hyperlipidemia, unspecified; M54.5 Low back pain; N40.0 Benign prostatic hyperplasia without lower urinary tract symptoms; M79.81 Nontraumatic hematoma of soft tissue; F41.9 Anxiety disorder, unspecified; D64.9 Anemia, unspecified; E66.9 Obesity, unspecified; R11.2 Nausea with vomiting, unspecified; Z68.33 Body mass index [BMI] 33.0-33.9, adult; Z11.59 Encounter for screening for other viral diseases; Z79.82 Long term (current) use of aspirin; Z87.891 Personal history of nicotine dependence; Z96.0 Presence of urogenital implants; Z79.899 Other long term (current) drug therapy; Z88.1 Allergy status to other antibiotic agents; Z91.013 Allergy to seafood

== ENCOUNTER 2020-02-24 20:06 | Emergency (ER) | payer MEDICARE, OTHER ==
[~2020-02-24] VITALS: Ht 170.2 cm; Wt 93.6 kg
[~2020-02-24 20:06] MED LIST changes: +AMLO10TA5 PO; -AMLO1TAB25 PO; +ATOR1TAB19 PO; +BACT400T PO; +ECOT81TA5 PO; +FLOM0.4C39 PO; -PANT40TA29 PO; +PANT40TA3 PO; +QC F0.52 PO; +SERT50TA29 PO
[2020-02-24 21:02] LABS: VENOUS BASE EXCESS 1.2 (-2.0-2.0); VENOUS HCO3 23.9 MEQ/L (23.0-27.0); VENOUS O2 SATURATION 99.1 % (60.0-80.0); VENOUS PARTIAL PRESSURE CO2 31.4 mmHg (38.0-50.0); VENOUS PARTIAL PRESSURE O2 135.7 mmHg (30.0-50.0); VENOUS STANDARD HCO3 25.6 MEQ/L; VENOUS TOTAL CO2 24.9 MEQ/L (24.0-28.0)
[2020-02-24 21:09] LABS: APPEARANCE, URINE HAZY (CLEAR); BACTERIA, URINE AUTO 3+ (NEGATIVE); BILIRUBIN, URINE AUTO NEGATIVE (NEGATIVE); BLOOD, URINE BLOOD 2+ (NEGATIVE); COLOR, URINE YELLOW (YELLOW); GLUCOSE, URINE (UA) AUTO NEGATIVE (NEGATIVE); KETONE, URINE AUTO NEGATIVE (NEGATIVE); LEUKOCYTE ESTERASE, URINE AUTO 2+ (NEGATIVE); MUCUS, URINE SMALL (NEGATIVE); NITRITE, URINE AUTO NEGATIVE (NEGATIVE); PROTEIN, URINE AUTO 2+ mg/dL (NEGATIVE); RBC, URINE AUTO 65 /HPF (0-3); SPECIFIC GRAVITY URINE AUTO 1.023 (1.002-1.035); SQUAMOUS EPITHELIAL CELL UR AU 0 /HPF (0-6); UROBILINOGEN, URINE AUTO 0.2 mg/dL (0.0-2.0); WBC, URINE AUTO 52 /HPF (0-3)
[2020-02-24 21:10] LABS: BASO % 0.2 % (0.0-1.0); EOS # 0.1 10^3/uL (0.0-0.5); EOS % 0.7 % (0.0-3.0); HEMATOCRIT 29.6 % (42.0-52.0); HEMOGLOBIN 9.8 g/dl (13.5-17.5); LYMPH # 0.6 10^3/uL (1.5-5.0); LYMPH % 6.2 % (24.0-44.0); MEAN CORPUSCULAR HEMOGLOBIN 29.5 pg (27.0-33.0); MEAN CORPUSCULAR HGB CONC 33.1 g/dl (32.0-36.5); MEAN CORPUSCULAR VOLUME 89.2 fl (80.0-96.0); MONO # 0.6 10^3/uL (0.0-0.8); MONO % 6.3 % (0.0-5.0); NEUTROPHILS % 85.5 % (36.0-66.0); PLATELET COUNT, AUTOMATED 244 10^3/uL (150-450); RED BLOOD COUNT 3.32 10^6/uL (4.30-6.10); WHITE BLOOD COUNT 9.4 10^3/uL (4.0-10.0)
[2020-02-24 21:32] LABS: INR 1.1; PROTHROMBIN TIME 13.9 SECONDS (11.8-14.0)
[2020-02-24 21:33] LABS: PARTIAL THROMBOPLASTIN TIME 32.6 SECONDS (25.0-38.4)
[2020-02-24 21:37] LABS: ALBUMIN 2.6 GM/DL (3.2-5.2); ALT/SGPT 22 U/L (12-78); AMYLASE 23 U/L (25-115); BILIRUBIN,DIRECT < 0.1 MG/DL (0.0-0.2); BILIRUBIN,TOTAL 0.2 MG/DL (0.2-1.0); BLOOD UREA NITROGEN 11 MG/DL (7-18); C REACTIVE PROTEIN QUANTITATIV 4.95 MG/DL (0.00-0.30); CALCIUM LEVEL 8.4 MG/DL (8.8-10.2); CARBON DIOXIDE LEVEL 24 MEQ/L (21-32); CHLORIDE LEVEL 102 MEQ/L (98-107); CK-MB VALUE MASS < 1.0 NG/ML (<3.6); CPK CREATINE PHOSPHOKINASE 50 U/L (39-308); CREATININE FOR GFR 0.67 MG/DL (0.70-1.30); GLOMERULAR FILTRATION RATE > 60.0 (>35); GLUCOSE, FASTING 107 MG/DL (70-100); POTASSIUM SERUM 3.9 MEQ/L (3.5-5.1); SODIUM LEVEL 132 MEQ/L (136-145); TOTAL PROTEIN 6.3 GM/DL (6.4-8.2); TROPONIN I < 0.02 NG/ML (< 0.10)
[2020-02-25] MEDS ORDERED: ISOVUE-370 76% 100ML VIAL As Ordered ONE (00:27)
[2020-02-25] MEDS ORDERED: ACETAMINOPHEN TAB 650MG DOSE (2X325MG) PO ONE (00:30)
--- NOTE | 2020-02-25 01:04 | REPVR ---
PROCEDURE INFORMATION: Exam: CT Abdomen And Pelvis With Contrast Exam date and time: 02/25/2020 12:36 AM Age: 84 years old Clinical indication: Abdominal pain; Other: Lumbar fluid collection; Prior surgery; Surgery date: 3-7 days post-operative TECHNIQUE: Imaging protocol: Computed tomography of the abdomen and pelvis with intravenous contrast. Radiation optimization: All CT scans at this facility use at least one of these dose optimization techniques: automated exposure control; mA and/or kV adjustment per patient size (includes targeted exams where dose is matched to clinical indication); or iterative reconstruction. Contrast material: ISOVUE 370; Contrast volume: 100 ml; Contrast route: INTRAVENOUS (IV); COMPARISON: LIVER US 04/07/2018 8:25 AM FINDINGS: Mediastinal space: Small to moderate hiatal hernia. Liver: Normal. No mass. Gallbladder and bile ducts: Normal. No calcified stones. No ductal dilation. Pancreas: Normal. No ductal dilation. Spleen: Small splenic hypodensities are too small to characterize. Adrenals: Normal. No mass. Kidneys and ureters: Simple left renal cyst measures 2.7 cm, no follow-up recommended. Additional small bilateral renal hypodensities are too small to characterize. Simple right renal cyst measures 1.8 centimetres, no follow-up recommended. Stomach and bowel: Diverticulosis without diverticulitis. Appendix: Fluid collection involving the posterior soft tissues is decreased from recent CT lumbar spine dated 02/18/2020. Heterogeneously enhancing mass at the inferior aspect of the left kidney measures 5.3 by 6.1 centimetres. Normal appendix. Intraperitoneal space: Unremarkable. No free air. No significant fluid collection. Vasculature: Vascular calcification. Lymph nodes: Unremarkable. No enlarged lymph nodes. Bladder: Urinary bladder is decompressed by a Bob catheter. Reproductive: Prominent prostate gland. There are infiltrative changes about the prostate gland. Bones/joints: There are degenerative and postoperative changes involving the lumbar spine. Soft tissues: Unremarkable. IMPRESSION: 1. Fluid collection involving the posterior lumbar paraspinous soft tissues is decreased from recent CT lumbar spine. 2. Heterogeneously enhancing left renal mass measures 5.3 x 6.1 cm and is concerning for renal malignancy. 3. Prominent prostate gland with adjacent infiltrative change, consider prostatitis versus neoplasia. 4. Additional findings as above. COMMENTS: Consistent with the [employer]'s Incidental Findings Committee white paper (J Am Chapis Radiol 2018): Any incidental renal lesion less than 1.0 cm or classified as too small to characterize, or any incidental cystic renal lesion characterized as simple-appearing, is likely benign. No follow-up imaging is recommended for these lesions per consensus recommendations based on imaging criteria. Electronically signed by: Haseeb Amos On 02/25/2020 01:03:54 AM
[2020-02-25 01:30] VITALS: BP 128/62
--- NOTE | 2020-02-25 08:18 | REP ---
REASON FOR EXAM: Septic shock. COMPARISON: 02/18/2020 The technique utilized in obtaining the radiograph has magnified the cardiac silhouette and accentuated the interstitial markings. The opacities seen previously in the lung bases have cleared. Cardiac silhouette is again seen to be magnified by technique. Mild cardiomegaly is suspected. Pleural angles are sharp. The osseous structures are within normal limits. IMPRESSION: No acute cardiopulmonary disease. Electronically Signed by Adin Bermeo DO 02/25/2020 09:17 A
--- NOTE | 2020-02-25 08:24 | ED PDOC ---
Post-Departure Follow-Up dr carl and dr garnett faxed formal report of ct abd/p for fu Victor Manuel Lebron MD Feb 25, 2020 08:24
--- NOTE | 2020-02-25 10:18 | ECGEPIP ---
[facility] - ED Test Date: 2020-02-24 Pat Name: SOLITARIO DIAZ Department: Room: - Gender: Male [employer]: MR : [id number] Requested By: Ant Pinon Order Number: [id number] Reading MD: Inga Galdamez Measurements Intervals [place] Rate: 71 P: 26 ID: [id number] QRS: 6 QRSD: 114 T: 22 QT: 403 QTc: 439 Interpretive Statements SINUS RHYTHM WITH MARKED SINUS ARRHYTHMIA INCOMPLETE RIGHT BUNDLE BRANCH BLOCK NO PRIOR Electronically Signed on 02-25-2020 10:18:54 EDT by Inga Gladamez
--- NOTE | 2020-02-26 08:58 | ED PDOC ---
Post-Departure Follow-Up Spoke to Dr Correia. He is aware of urine culture - from 02/24/20 anak had placed him on levaquin yesterday in the office. Victor Manuel Lebron MD Feb 26, 2020 08:58
== END 2020-02-25 04:02 | disposition left against medical advice (07) ==
LOC: M ED 20:06
DX: R50.82 Postprocedural fever (principal); Z53.21 Procedure and treatment not carried out due to patient leaving prior to being seen by health care provider; I45.19 Other right bundle-branch block; N28.89 Other specified disorders of kidney and ureter; Z96.0 Presence of urogenital implants; I10 Essential (primary) hypertension; N40.0 Benign prostatic hyperplasia without lower urinary tract symptoms; M19.90 Unspecified osteoarthritis, unspecified site; E78.00 Pure hypercholesterolemia, unspecified; Z87.891 Personal history of nicotine dependence; Z79.82 Long term (current) use of aspirin; Z79.899 Other long term (current) drug therapy; Z91.013 Allergy to seafood; Z88.1 Allergy status to other antibiotic agents
CPT/HCPCS: 71045; 74177; 80048; 80076; 81001; 82150; 82550; 82553; 82803; 83605; 84484; 85025; 85610; 85730; 86140; 87040; 87077; 87088; 87186; 87486; 87581; 87633; 87798; 93005; 93041; 99285; 99496; Q9967

== ENCOUNTER → 2020-11-16 | Outpatient (REF) | payer MEDICARE, OTHER ==
[~2020-11-16] MED LIST changes: -AMLO10TA5 PO; +AMLO1TAB25 PO; -ESCI20TA PO; +ESCI20TA16 PO; +PANT40TA29 PO; -PANT40TA3 PO
[2020-11-16 18:24] LABS: CALCIUM LEVEL 8.9 MG/DL (8.8-10.2); CREATININE FOR GFR 1.43 MG/DL (0.70-1.30); GLOMERULAR FILTRATION RATE 50.3 (>35); POTASSIUM SERUM 4.5 MEQ/L (3.5-5.1)
== END ==
LOC: M LABDRAWC 15:57
PROVIDERS: ATTEND Urology
DX: C64.2 Malignant neoplasm of left kidney, except renal pelvis (principal)

== ENCOUNTER → 2020-12-08 | Outpatient (REF) | payer MEDICARE, OTHER ==
[2020-12-08 12:11] LABS: CALCIUM LEVEL 9.3 MG/DL (8.8-10.2); CREATININE FOR GFR 1.41 MG/DL (0.70-1.30); GLOMERULAR FILTRATION RATE 51.1 (>35); POTASSIUM SERUM 4.1 MEQ/L (3.5-5.1)
== END ==
LOC: M LABDRAWC 11:06
PROVIDERS: ATTEND Urology
DX: C64.2 Malignant neoplasm of left kidney, except renal pelvis (principal)

== ENCOUNTER → 2020-12-21 | Outpatient (CLI) | payer MEDICARE, OTHER | LOC: M LABSMTC 10:24 | PROVIDERS: ATTEND Family Medicine Sports Medicine | DX: Z01.812 Encounter for preprocedural laboratory examination (principal); Z11.52 Encounter for screening for COVID-19 ==

== ENCOUNTER → 2021-03-21 | Outpatient (REF) | payer MEDICARE, OTHER ==
[2021-03-21 16:40] LABS: CREATININE FOR GFR 1.47 MG/DL (0.70-1.30); GLOMERULAR FILTRATION RATE 48.7 (>35)
== END ==
LOC: M LABDRAWC 16:06
PROVIDERS: ATTEND Surgery
DX: K86.9 Disease of pancreas, unspecified (principal)

== ENCOUNTER → 2021-05-08 | Outpatient (REF) | payer MEDICARE, OTHER ==
[2021-05-09 13:44] LABS: CREATININE FOR GFR 1.56 MG/DL (0.70-1.30); GLOMERULAR FILTRATION RATE 45.4 (>35); POTASSIUM SERUM 4.4 MEQ/L (3.5-5.1)
== END ==
LOC: M LABDRAWC 11:55
PROVIDERS: ATTEND Urology
DX: C64.2 Malignant neoplasm of left kidney, except renal pelvis (principal)

== ENCOUNTER → 2021-06-07 | Outpatient (REF) | payer MEDICARE, OTHER ==
[2021-06-07 11:47] LABS: BASO % 0.6 % (0.0-1.0); EOS # 0.2 10^3/uL (0.0-0.5); EOS % 2.6 % (0.0-3.0); HEMATOCRIT 42.3 % (42.0-52.0); HEMOGLOBIN 13.2 g/dl (13.5-17.5); LYMPH # 1.8 10^3/uL (1.5-5.0); MEAN CORPUSCULAR HEMOGLOBIN 28.6 pg (27.0-33.0); MEAN CORPUSCULAR HGB CONC 31.2 g/dl (32.0-36.5); MEAN CORPUSCULAR VOLUME 91.8 fl (80.0-96.0); MONO # 0.6 10^3/uL (0.0-0.8); MONO % 8.7 % (2.0-8.0); NEUTROPHILS # 3.8 10^3/uL (1.5-8.5); NEUTROPHILS % 59.6 % (36.0-66.0); PLATELET COUNT, AUTOMATED 309 10^3/uL (150-450); RED BLOOD COUNT 4.61 10^6/uL (4.30-6.10); WHITE BLOOD COUNT 6.4 10^3/uL (4.0-10.0)
[2021-06-07 12:34] LABS: ALBUMIN 3.8 GM/DL (3.2-5.2); BILIRUBIN,TOTAL 0.2 MG/DL (0.2-1.0); CALCIUM LEVEL 8.9 MG/DL (8.8-10.2); CHOLESTEROL RISK RATIO 7.184 (<5); CREATININE FOR GFR 1.6 MG/DL (0.70-1.30); FREE T4 0.78 NG/DL (0.76-1.46); GLOMERULAR FILTRATION RATE 44.1 (>35); POTASSIUM SERUM 4.6 MEQ/L (3.5-5.1); THYROID STIMULATING HORMONE 1.98 uIU/ML (0.358-3.740)
== END ==
LOC: M SFHCCLAY 09:14
PROVIDERS: ATTEND Family Medicine
DX: I10 Essential (primary) hypertension (principal); E78.00 Pure hypercholesterolemia, unspecified; K22.70 Barrett's esophagus without dysplasia

== ENCOUNTER → 2021-12-26 | Outpatient (REF) | payer MEDICARE, OTHER ==
[2021-12-26 12:27] LABS: CALCIUM LEVEL 9.4 MG/DL (8.8-10.2); CREATININE FOR GFR 1.55 MG/DL (0.70-1.30); GLOMERULAR FILTRATION RATE 45.7 (>35); POTASSIUM SERUM 4.6 MEQ/L (3.5-5.1)
== END ==
LOC: M LABDRAWC 11:31
PROVIDERS: ATTEND Urology
DX: C64.2 Malignant neoplasm of left kidney, except renal pelvis (principal)

== ENCOUNTER → 2022-01-08 | Outpatient (CLI) | payer MEDICARE, OTHER | LOC: M RAD 13:36 | PROVIDERS: ATTEND Physician Assistant | DX: I65.23 Occlusion and stenosis of bilateral carotid arteries (principal) ==

== ENCOUNTER → 2022-02-15 | Outpatient (REF) | payer MEDICARE, OTHER ==
[2022-02-15 16:44] LABS: CALCIUM LEVEL 9.1 MG/DL (8.8-10.2); CREATININE FOR GFR 1.5 MG/DL (0.70-1.30); GLOMERULAR FILTRATION RATE 47.5 (>35); POTASSIUM SERUM 4.7 MEQ/L (3.5-5.1)
== END ==
LOC: M LABDRAWC 16:07
PROVIDERS: ATTEND Urology
DX: C64.2 Malignant neoplasm of left kidney, except renal pelvis (principal)

== ENCOUNTER → 2022-06-28 | Outpatient (REF) | payer MEDICARE, OTHER ==
[2022-06-28 12:32] LABS: ALBUMIN 3.7 GM/DL (3.2-5.2); BILIRUBIN,TOTAL 0.3 MG/DL (0.2-1.0); CHOLESTEROL RISK RATIO 3.5 (<5); CREATININE FOR GFR 1.45 MG/DL (0.70-1.30); GLOMERULAR FILTRATION RATE 49.2 (>35); POTASSIUM SERUM 4.5 MEQ/L (3.5-5.1); THYROID STIMULATING HORMONE 2.83 uIU/ML (0.358-3.740); TOTAL PROTEIN 7.5 GM/DL (6.4-8.2)
== END ==
LOC: M SFHCCLAY 07:45
PROVIDERS: ATTEND Family Medicine
DX: I10 Essential (primary) hypertension (principal); E78.00 Pure hypercholesterolemia, unspecified

== ENCOUNTER → 2023-02-07 | Outpatient (REF) | payer MEDICARE, OTHER ==
[2023-02-07 17:43] LABS: HEMATOCRIT 32.1 % (42.0-52.0); HEMOGLOBIN 9.2 g/dl (13.5-17.5); MEAN CORPUSCULAR HGB CONC 28.7 g/dl (32.0-36.5); MEAN CORPUSCULAR VOLUME 83.8 fl (80.0-96.0); PLATELET COUNT, AUTOMATED 292 10^3/uL (150-450); RED BLOOD COUNT 3.83 10^6/uL (4.30-6.10); WHITE BLOOD COUNT 6.6 10^3/uL (4.0-10.0)
[2023-02-07 18:09] LABS: FREE T4 0.77 NG/DL (0.89-1.76); THYROID STIMULATING HORMONE 2.127 uIU/ML (0.55-4.78)
[2023-02-07 18:11] LABS: ALBUMIN 3.7 G/DL (3.2-5.2); ALKALINE PHOSPHATASE 71 U/L (46-116); ALT/SGPT 40 U/L (7.0-40); AST/SGOT 31 U/L (<34); BILIRUBIN,TOTAL 0.2 MG/DL (0.3-1.2); BLOOD UREA NITROGEN 21 MG/DL (9-23); CALCIUM LEVEL 8.4 MG/DL (8.3-10.6); CARBON DIOXIDE LEVEL 26 MMOL/L (20-31); CHLORIDE LEVEL 105 MMOL/L (98-107); CHOLESTEROL LEVEL 138 MG/DL (<200); CHOLESTEROL RISK RATIO 3.66 (<5); CREATININE FOR GFR 1.36 MG/DL (0.70-1.30); GLUCOSE, FASTING 84 MG/DL (74-106); HDL CHOLESTEROL 37.7 MG/DL (>40); LDL CHOLESTEROL 53.1 MG/DL (<100); NON-HDL-C 100.3 MG/DL; POTASSIUM SERUM 4.7 MMOL/L (3.5-5.1); SODIUM LEVEL 139 MMOL/L (136-145); TOTAL PROTEIN 7.2 G/DL (5.7-8.2); TRIGLYCERIDES LEVEL 236 MG/DL (<150)
[2023-02-10 07:39] LABS: LDH LACTATE DEHYDROGENASE 173 U/L (120-246)
[2023-02-10 07:40] LABS: IRON (FE) 28 UG/DL (65-175); TOTAL IRON BINDING CAPACITY 402 UG/DL (250-425)
[2023-02-10 07:42] LABS: FOLATE 11.03 NG/ML (>5.4)
[2023-02-10 07:45] LABS: VITAMIN B12 LEVEL > 2000 PG/ML (211-911)
== END ==
LOC: M SFHCCLAY 14:36
PROVIDERS: ATTEND Family Medicine
DX: F03.90 Unspecified dementia, unspecified severity, without behavioral disturbance, psychotic disturbance, mood disturbance, and anxiety (principal); K22.70 Barrett's esophagus without dysplasia; Z79.899 Other long term (current) drug therapy

== ENCOUNTER → 2023-02-08 | Outpatient (REF) | payer MEDICARE, OTHER | LOC: M SFHCCLAY 21:08 | PROVIDERS: ATTEND Family Medicine | DX: Z53.9 Procedure and treatment not carried out, unspecified reason (principal); K22.70 Barrett's esophagus without dysplasia ==

== ENCOUNTER → 2023-02-14 | Outpatient (CLI) | payer MEDICARE, OTHER | LOC: M PLAIMG 13:38 | PROVIDERS: ATTEND Family Medicine | DX: F03.90 Unspecified dementia, unspecified severity, without behavioral disturbance, psychotic disturbance, mood disturbance, and anxiety (principal) ==

== ENCOUNTER → 2023-03-20 | Outpatient (REF) | payer MEDICARE, OTHER ==
[2023-03-20 19:44] LABS: LDH LACTATE DEHYDROGENASE 172 U/L (120-246)
[2023-03-20 19:45] LABS: FOLATE 7.17 NG/ML (>5.4)
[2023-03-20 19:48] LABS: IRON (FE) 93 UG/DL (65-175); PERCENT SATURATION 24.1 % (19.7-50.0); TOTAL IRON BINDING CAPACITY 386 UG/DL (250-425); VITAMIN B12 LEVEL > 2000 PG/ML (211-911)
== END ==
LOC: M SFHCCLAY 13:31
PROVIDERS: ATTEND Family Medicine
DX: K22.70 Barrett's esophagus without dysplasia (principal)

== ENCOUNTER → 2024-03-24 | Outpatient (REF) | payer MEDICARE, OTHER ==
[~2024-03-24] MED LIST changes: +RAMI10CA64 PO; -RAMI1CAP26 PO
[2024-03-24 19:12] LABS: CALCIUM LEVEL 9.5 MG/DL (8.3-10.6); CREATININE FOR GFR 1.37 MG/DL (0.70-1.30); GLOMERULAR FILTRATION RATE 52.4 (>35); POTASSIUM SERUM 4.6 MMOL/L (3.5-5.1)
== END ==
LOC: M LABDRAWC 16:44
PROVIDERS: ATTEND Urology
DX: C64.2 Malignant neoplasm of left kidney, except renal pelvis (principal)

== ENCOUNTER → 2024-07-07 | Outpatient (REF) | payer MEDICARE, OTHER ==
[2024-07-07 17:04] LABS: HEMATOCRIT 45.1 % (42.0-52.0); HEMOGLOBIN 14.5 g/dl (13.5-17.5); MEAN CORPUSCULAR HEMOGLOBIN 30.5 pg (27.0-33.0); MEAN CORPUSCULAR HGB CONC 32.2 g/dl (32.0-36.5); MEAN CORPUSCULAR VOLUME 94.7 fl (80.0-96.0); PLATELET COUNT, AUTOMATED 203 10^3/uL (150-450); RED BLOOD COUNT 4.76 10^6/uL (4.30-6.10)
[2024-07-07 17:29] LABS: HEMOGLOBIN A1c 5.6 % (4.0-6.0)
[2024-07-07 17:34] LABS: BILIRUBIN,TOTAL 0.3 MG/DL (0.3-1.2); CALCIUM LEVEL 9.5 MG/DL (8.3-10.6); CREATININE FOR GFR 1.31 MG/DL (0.70-1.30); GLOMERULAR FILTRATION RATE 55.1 (>35); PERCENT SATURATION 35.4 % (19.7-50.0); POTASSIUM SERUM 4.7 MMOL/L (3.5-5.1); TOTAL PROTEIN 7.7 G/DL (5.7-8.2)
[2024-07-07 17:35] LABS: FREE T4 0.93 NG/DL (0.89-1.76)
[2024-07-07 17:36] LABS: THYROID STIMULATING HORMONE 2.729 uIU/ML (0.55-4.78)
== END ==
LOC: M SFHCCLAY 09:35
PROVIDERS: ATTEND Family Medicine
DX: K22.70 Barrett's esophagus without dysplasia (principal); F03.90 Unspecified dementia, unspecified severity, without behavioral disturbance, psychotic disturbance, mood disturbance, and anxiety; I10 Essential (primary) hypertension; Z79.899 Other long term (current) drug therapy

== ENCOUNTER → 2025-03-23 | Outpatient (REF) | payer MEDICARE, OTHER ==
[~2025-03-23] MED LIST changes: -FLOM0.4C39 PO; +HYDR12.510 PO; -HYDR12CA PO; +TAMS-18 PO
[2025-03-24 02:08] LABS: CALCIUM LEVEL 8.9 MG/DL (8.3-10.6); CARBON DIOXIDE LEVEL 28.0 MMOL/L (20-31); CHLORIDE LEVEL 104.0 MMOL/L (98-107); CREATININE FOR GFR 1.36 MG/DL (0.70-1.30); GLOMERULAR FILTRATION RATE 50.4 (>35); POTASSIUM SERUM 4.3 MMOL/L (3.5-5.1); SODIUM LEVEL 141.0 MMOL/L (136-145)
== END ==
LOC: M LABDRAWC 17:34
PROVIDERS: ATTEND Urology
DX: C64.2 Malignant neoplasm of left kidney, except renal pelvis (principal)

== ENCOUNTER → 2025-06-21 | Outpatient (REF) | payer MEDICARE, OTHER ==
[2025-06-23 18:20] LABS: CALCIUM LEVEL 9.3 MG/DL (8.3-10.6); CARBON DIOXIDE LEVEL 29.0 MMOL/L (20-31); CHLORIDE LEVEL 103.0 MMOL/L (98-107); CHOLESTEROL LEVEL 143.0 MG/DL (<200); CHOLESTEROL RISK RATIO 4.62 (<5); CREATININE FOR GFR 1.34 MG/DL (0.70-1.30); GLOMERULAR FILTRATION RATE 51.0 (>35); LDL CHOLESTEROL 70.1 MG/DL (<100); NON-HDL-C 112.1 MG/DL; POTASSIUM SERUM 4.3 MMOL/L (3.5-5.1); SODIUM LEVEL 141.0 MMOL/L (136-145); TRIGLYCERIDES LEVEL 210.0 MG/DL (<150)
[2025-06-23 18:57] LABS: ESTIMATED AVERAGE GLUCOSE 120.0 MG/DL (60-110)
== END ==
LOC: M SFHCCLAY 11:01
PROVIDERS: ATTEND Nurse Practitioner Family
DX: K22.70 Barrett's esophagus without dysplasia (principal); I10 Essential (primary) hypertension; N40.1 Benign prostatic hyperplasia with lower urinary tract symptoms; F01.B18 Vascular dementia, moderate, with other behavioral disturbance; Z79.899 Other long term (current) drug therapy